=== PATIENT | female | born 1990 | race American Indian/Alaskan Native ===

== ENCOUNTER 2020-10-02 19:49 | Emergency (ER) | payer MEDICAID ==
[2020-10-03 01:46] VITALS: BP 136/74
--- NOTE | 2020-10-03 03:23 | Emergency Department Report ---
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 No fever, chills, sweats. She notices a pustular type rash developing on the area as well. Tetanus Up to Date: yes Location: L foot Severity: mild, moderate Quality: dull Consistency: constant Improves with: none Worsens with: none Context: none Associated symptoms: itching Treatments Prior to Arrival: none - Related Data Previous Rx's Medication Instructions Recorded Last Taken Type Ketorolac [Toradol] 10 mg PO Q6H PRN #15 tablet 10/03/20 Unknown Rx Sulfamethoxazole/Trimethoprim 1 each PO BID #20 tablet 10/03/20 Unknown Rx [Bactrim DS TAB] Abscess Boil HPI - HPI Chief Complaint: Extremity Injury, Lower Stated Complaint: L FOOT SWOLLEN Time Seen by Provider: 10/03/20 02:21 Home Medications: Previous Rx's Medication Instructions Recorded Last Taken Type Ketorolac [Toradol] 10 mg PO Q6H PRN #15 tablet 10/03/20 Unknown Rx Sulfamethoxazole/Trimethoprim 1 each PO BID #20 tablet 10/03/20 Unknown Rx [Bactrim DS TAB] ED Review of Systems ROS: Stated complaint: L FOOT SWOLLEN Other details as noted in HPI Comment: All other systems reviewed and negative ED Past Medical Hx - Past Medical History Previous Medical History?: No - Surgical History Past Surgical History?: Yes Additional Surgical History: CSecX1 - Medications Home Medications: Home Medications Medication Instructions Recorded Confirmed Last Taken Type Ketorolac [Toradol] 10 mg PO Q6H PRN #15 tablet 10/03/20 Unknown Rx Sulfamethoxazole/Trimethoprim 1 each PO BID #20 tablet 10/03/20 Unknown Rx [Bactrim DS TAB] ED Physical Exam - General Limitations: No Limitations General appearance: alert, in no apparent distress - Head Head exam: Present: atraumatic, normocephalic - Eye Eye exam: Present: normal appearance - ENT ENT exam: Present: mucous membranes moist - Neck Neck exam: Present: normal inspection - Respiratory Respiratory exam: Present: normal lung sounds bilaterally. Absent: respiratory distress - Cardiovascular Cardiovascular Exam: Present: regular rate, normal rhythm. Absent: systolic murmur, diastolic murmur, rubs, gallop - GI/Abdominal GI/Abdominal exam: Present: soft, normal bowel sounds - Extremities Exam Extremities exam: Present: normal inspection, full ROM, tenderness, other (Red swollen left foot with a pustular rash developing to the dorsum. No lymphangitis is noted. There is warmth and tenderness pulses 2+ capillary refill is brisk) - Back Exam Back exam: Present: normal inspection - Neurological Exam Neurological exam: Present: alert, oriented X3 - Psychiatric Psychiatric exam: Present: normal affect, normal mood - Skin Skin exam: Present: warm, dry, intact, normal color. Absent: rash ED Course Vital Signs 10/03/20 01:39 Temperature 98.7 F Pulse Rate 77 Respiratory 18 Rate Blood Pressure 136/74 O2 Sat by Pulse 98 Oximetry Critical care attestation.: If time is entered above; I have spent that time in minutes in the direct care of this critically ill patient, excluding procedure time. ED Disposition Clinical Impression: Cellulitis of foot, left Disposition: HOME / SELF CARE / HOMELESS Is pt being admited?: No Does the pt Need Aspirin: No Condition: Stable Instructions: Cellulitis, Adult Prescriptions: Sulfamethoxazole/Trimethoprim [Bactrim DS TAB] 1 each PO BID #20 tablet Ketorolac [Toradol] 10 mg PO Q6H PRN #15 tablet PRN Reason: Pain Referrals: [facility] [Provider Group] - 3-5 Days PRIMARY CARE, [Primary Care Provider] - 3-5 Days
== END 2020-10-03 03:58 | disposition home or self-care (01) ==
LOC: EDSEX → ED 19:49
DX: L03.116 Cellulitis of left lower limb (principal); Z98.890 Other specified postprocedural states
CPT/HCPCS: 99282